=== PATIENT | female | born 1995 | race Caucasian/White ===

== ENCOUNTER 2023-03-27 14:58 | Emergency (ER) | payer OTHER, SELFPAY ==
[2023-03-27 15:14] VITALS: BP 132/86
[2023-03-27 16:16] VITALS: BP 133/86; BMI 27.4
[2023-03-27 16:17] VITALS: BP 133/86
[2023-03-27 16:32] LABS: % Basophils 0.5 % (0-2); % Eosinophils 1.5 % (0-6); % Immature Granulocytes 0.2 % (0-0.5); % Lymphocytes 35.6 % (20.5-51.1); % Monocytes 7.2 % (1.7-9.3); Absolute Eosinophils 0.1 10^3/uL (0-0.7); Absolute Lymphocytes 2.1 10^3/uL (1.2-3.4); Absolute Monocytes 0.4 10^3/uL (0.1-0.6); Absolute Neutrophils 3.2 10^3/uL (1.4-6.5); Hematocrit 36.3 % (37.0-47.0); Hemoglobin 13.5 g/dL (12.0-16.0); Mean Corp Hgb Conc. 37.2 g/dL (33.0-37.0); Mean Corpuscular Hgb 34.5 pg (27.0-31.0); Mean Corpuscular Volume 92.8 fL (81.0-99.0); Mean Platelet Volume 9.1 fL (7.4-10.4); Nucleated Red Blood Cells % 0 %; Platelet Count 265 10^3/uL (130-400); Red Blood Cell Count 3.91 10^6/uL (4.20-5.40); Red Cell Dist. Width 11.9 % (11.5-14.5); White Blood Cell Count 5.8 10^3/uL (4.8-10.8)
[2023-03-27 16:39] LABS: HCG, Serum Qualitative Screen Negative
[2023-03-27 16:48] LABS: D-Dimer < 0.27 ug/mlFEU (0.00-0.50)
[2023-03-27 16:53] LABS: Blood Urea Nitrogen 13 mg/dl (7-17); Carbon Dioxide 24 mmol/L (22-30); Estimated Creatinine Clearance 104 ml/min; Glucose 96 mg/dl (70-99); eGFR > 60.00
[2023-03-27 17:00] VITALS: BP 111/81
[2023-03-27 17:05] LABS: Chloride 102 mmol/L (98-107); Potassium 4.2 mmol/L (3.5-5.1); Sodium 136 mmol/L (135-145)
--- NOTE | 2023-03-27 17:36 | ED.GENMED ---
History of Present Illness
General
Chief Complaint: Numbness
Source: patient
Exam Limitations: none
Time Seen by Provider: 03/27/23 15:59
Travel History
Have you had any contact with someone who has COVID-19?: No
Do you have any symptoms of coronavirus? Fever > 100 degrees, chills, cough, shortness of breath, sore throat, loss of taste or smell, muscle aches, or headache?: No
History of Present Illness
History of Present Illness:
Patient with localized paresthesias to the right lateral leg yesterday. Very patchy local area. Today extended to the right arm. Feels like there is a cuff on her right arm. No weakness no other neurologic symptoms no swelling. She feels like
it is a circulation issue. Sent by her primary care for further evaluation. Patient did have a headache earlier in the week which she gets with her migraines.
Past History
Past History
ED Past Medical History: Asthma, Psychiatric (bipolar affective disorder) and Other (multiple concussions)
ED Past Surgical History: None
Social History
Tobacco: Non-smoker
Alcohol: Occasional
Drug: None
Personal: Single
Living: with family
Employment: Student
Family History
Family History: Other (coronary artery disease in father)
Review of Systems
Review of Systems
All Other Systems: Not applicable
Constitutional: Denies fever
Respiratory: Reports no symptoms
Cardiac: Reports no symptoms
Neurological: Denies weakness
Phy Exam
Physical Exam
Physical Exam:
GENERAL: Alert and oriented in no apparent distress
EYE: Orbits normal.
NECK: Supple, no carotid bruit
ENT: Pharynx without erythema
CARDIAC: Regular rate and rhythm without any obvious murmurs.
LUNGS: Clear breath sounds,normal
ABDOMEN: Soft, without focal tenderness or distention
NEUROLOGICAL: Alert and oriented , cranial nerves II through XII intact. Speech normal. [id number] normal. No drift. [id number] normal. Light touch and pinprick intact.
SKIN: Warm and dry, no rash or lesion, no discoloration, skin intact.
MUSCULOSKELETAL: No edema,no deformity.Good color
PSYCH: Normal and appropriate interaction.
Course
Orders/Labs/Results
Orders:
Orders
03/27/23 16:10
CT Head W/o Iv Contrast Urgent
Comment:
Reason For Exam: Recent headache. Right-sided paresthesias
Cardiac Monitoring- Treatment ONCE
IV Insert/Care/Rem.- Treatment PRN
Pulse Ox/cont/shift [RESP] Stat
Quantity: 1
03/27/23 16:11
Electrocardiogram (*1) Stat
Reason for Study: Other
Other Reason for Exam: neuro symptoms
EKG- Treatment ONCE
Test Result ONCE
03/27/23 16:19
Basic Metabolic Panel Urgent
Beta Hcg Serum Qualitative Screen [HCG, Serum Qualitative Screen] Urgent
Complete Blood Count/With Diff Urgent
D-Dimer Urgent
Abnormal Lab Results
03/27/23
16:19
RBC 3.91 L 10^6/uL
(4.20-5.40)
Hct 36.3 L %
(37.0-47.0)
MCH 34.5 H pg
(27.0-31.0)
MCHC 37.2 H g/dL
(33.0-37.0)
03/27/23 16:19
03/27/23 16:19
Vital Signs
Initial and Last Documented VS:
Initial Vital Signs
Temp Pulse Resp BP Pulse Ox
98.4 F 91 22 132/86 96
03/27/23 15:14 03/27/23 15:14 03/27/23 15:14 03/27/23 15:14 03/27/23 15:14
Last Documented Vital Signs
Temp Pulse Resp BP Pulse Ox
98.4 F 73 17 118/77 96
03/27/23 15:14 03/27/23 18:00 03/27/23 18:00 03/27/23 18:00 03/27/23 16:16
*Radiology
Radiology exam reviewed: radiology read reviewed (None acute sinusitis)
*EKG
Interpreted by ED Provider?: Yes
Interpretation: normal
Comparison EKG: no changes
Heart Rate: 78
Rate: normal
Rhythm: sinus
[place]: normal axis
Interval: normal interval
QRS Pattern: normal QRS
Ischemia: no ischemia
*Critical Care Note
Total Time (30-74mins, 75-104mins- exclusive of procedures): Not Applicable
Update Note
Update Note:
Patient's exam and workup unremarkable. No acute symptoms at this time. No risk factors for stroke. Sensation clinically intact. Stable for discharge to follow-up
ED Attending Note
-
Portions of this chart may have been created with voice recognition software.� Occasional wrong word or��sound alike� substitutions may have occurred due to the inherent limitations of voice recognition software.
Discharge Plan
Departure
Patient Disposition: Home (Routine Discharge)
Date of Disposition: 03/27/23
Time of Disposition: 18:22
Patient with high blood pressure during this ER visit?: No
Discharge Problem:
Paresthesias, Nonacute chronic sinusitis
Instructions: Paresthesia (DC)
Prescriptions:
No Action
albuterol sulfate 1 PUFF HFA aerosol inhaler
1 puff inhalation R Q4HPRN PRN (Reason: SOB)
norethindrone-e.estradiol-iron 1 EACH tablet
1 ea PO DAILY
carbamazepine 100 MG tablet extended release 12 hr
100 mg PO DAILY
fluoxetine 10 MG capsule
10 mg PO DAILY
Referrals:
Ayush Mosley MD [Family Provider] - Follow up in 2-3 days
Activity Restrictions/Additional Instructions:
Follow-up closely with your primary physician
Return with worsening paresthesias weakness unusual headache visual issues speech issues or any other concerning symptoms
Interventions
Interventions:
*Risk Screen - Suicide Last Done: 03/27/23 15:16
*General Assessment Last Done: 03/27/23 15:16
*Neglect/Abuse Screening Last Done: 03/27/23 15:16
ED- Fall Risk Assessment Last Done: 03/27/23 16:16
*ED COVID-19 Vaccine History Last Done: 03/27/23 16:16
ED- Neurological Assessment Last Done: 03/27/23 16:16
[2023-03-27 18:00] VITALS: BP 118/77
== END 2023-03-27 18:35 | disposition home or self-care (01) ==
LOC: EMR 14:58
PROVIDERS: EMERGENCY PHYSICIAN Emergency Medicine; FAMILY PHYSICIAN Family Medicine
DX: R20.2 Paresthesia of skin (principal); J32.9 Chronic sinusitis, unspecified; R20.0 Anesthesia of skin; R29.818 Other symptoms and signs involving the nervous system
CPT/HCPCS: 99285; 70450; 80048; 84703; 85025; 85379; 93005

== ENCOUNTER 2023-08-20 22:33 | Emergency (ER) | payer OTHER, SELFPAY ==
[2023-08-20 22:35] VITALS: BP 140/94
[2023-08-20 22:53] LABS: % Basophils 0.5 % (0-2); % Eosinophils 3.4 % (0-6); % Immature Granulocytes 0.2 % (0-0.5); % Lymphocytes 25.4 % (20.5-51.1); % Monocytes 7.7 % (1.7-9.3); % Neutrophils 62.8 % (42.2-75.2); Absolute Basophils 0.1 10^3/uL (0-0.2); Absolute Eosinophils 0.4 10^3/uL (0-0.7); Absolute Lymphocytes 2.8 10^3/uL (1.2-3.4); Absolute Monocytes 0.8 10^3/uL (0.1-0.6); Absolute Neutrophils 6.9 10^3/uL (1.4-6.5); Hematocrit 36.4 % (37.0-47.0); Hemoglobin 13.4 g/dL (12.0-16.0); Mean Corp Hgb Conc. 36.8 g/dL (33.0-37.0); Mean Corpuscular Hgb 34.3 pg (27.0-31.0); Mean Corpuscular Volume 93.1 fL (81.0-99.0); Nucleated Red Blood Cells % 0 %; Platelet Count 244 10^3/uL (130-400); Red Blood Cell Count 3.91 10^6/uL (4.20-5.40); Red Cell Dist. Width 11.9 % (11.5-14.5); White Blood Cell Count 10.9 10^3/uL (4.8-10.8)
[2023-08-20 23:03] LABS: HCG, Serum Qualitative Screen Negative
[2023-08-20 23:13] LABS: ALT (SGPT) 22 U/L (0-35); AST (SGOT) 24 U/L (14-36); Albumin 4.6 g/dl (3.5-5.0); Alkaline Phosphatase 58 U/L (38-126); Blood Urea Nitrogen 13 mg/dl (7-17); Calcium 9.5 mg/dl (8.4-10.2); Carbon Dioxide 28 mmol/L (22-30); Chloride 102 mmol/L (98-107); Glucose 98 mg/dl (70-99); Potassium 4.4 mmol/L (3.5-5.1); Sodium 137 mmol/L (135-145); Total Bilirubin 0.4 mg/dl (0.2-1.3); Total Protein 7.2 g/dl (6.3-8.2); eGFR > 60.00
--- NOTE | 2023-08-21 01:40 | ED.GENMED ---
History of Present Illness
General
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
Source: patient
Exam Limitations: none
Time Seen by Provider: 08/21/23 00:36
Nursing documentation reviewed up to this point in time: agreed with
History of Present Illness
History of Present Illness:
Ngozi presents with complaints of intermittent but near daily stabbing type pain right lower quadrant/right pelvic region that began 1 month ago. Pain has been near daily but worse over the past week and now seems to be generalized across her
lower abdomen/suprapubic region. No history of similar episodes of pain in the past.
With onset of pain early July she states she had 2 positive home test but then follow-up blood test July 22 was negative for .
She is maintained on control pills and reports daily compliance but has not had a menstrual period over the past 2 months which is unusual for her. No prior history of ovarian cysts, no history of STDs.
She had been following with Dr. Montes but since his departure has had trouble establishing with a new BAT LATHE OPERATOR. She has secured an appointment in October with a telephone collector from [facility].
She denies dysuria and urgency and or hematuria. She denies constipation nor diarrhea. No change in pain after emptying her bladder nor change in pain after bowel movement. She has had no nausea nor vomiting, no fever nor chills. No vaginal
discharge.
Past History
Past History
ED Past Medical History: Asthma, Psychiatric (bipolar affective disorder) and Other (multiple concussions)
ED Past Surgical History: None
Social History
Tobacco: Non-smoker
Alcohol: Occasional
Drug: None
Personal: Single
Living: with family
Employment: Employed
Family History
Family History: Other (coronary artery disease in father)
Phy Exam
Physical Exam
Physical Exam:
GENERAL: 27-year-old female appears her stated age, awake and alert, pleasant, appears in no acute distress.
EYE: anicteric
NECK: Supple, nontender, no meningismus, no significant adenopathy.
ENT: oral mucosa is moist. No rhinorrhea.
CARDIAC: Regular rate and rhythm. no murmur.
LUNGS: Clear breath sounds bilaterally, no acute respiratory distress, no wheezes/rales/rhonchi
ABDOMEN: Soft, nondistended, mild tenderness with deep palpation only to the right distal lower quadrant, minimal tenderness suprapubic. No r/g, no cvat. normoactive BS.
NEUROLOGICAL: Alert and oriented x3, no focal neuro deficits. Gait is carbajal and steady.
SKIN: Warm and dry, normal color, skin intact. No rash.
MUSCULOSKELETAL: No C/C/E. peripheral pulses are full and equal b/l. No palpable tenderness.
PSYCH: Normal and appropriate interaction.
Course
Orders/Labs/Results
Orders:
Orders
08/20/23 22:38
Test Result ONCE
08/20/23 22:46
CMP [Comprehensive Metabolic Panel] Urgent
Complete Blood Count/With Diff Urgent
HCG, Serum Qualitative Screen Urgent
08/21/23 00:39
US Pelvis Only (non-obstetric) Urgent
Comment:
Reason For Exam: right pelvi pain
08/21/23 01:36
Urinalysis Reflex To Culture Urgent
Date Specimen was Collected: 08/21/23
Time Specimen was Collected: 01:35
Urine Microscopic Reflex Cult Urgent
Urine Culture Urgent
[place] Source: U
Specimen Description:
Date Specimen was Collected: 08/21/23
Time Specimen was Collected: 01:35
Abnormal Lab Results
08/20/23 08/21/23
22:46 01:36
WBC 10.9 H 10^3/uL
(4.8-10.8)
RBC 3.91 L 10^6/uL
(4.20-5.40)
Hct 36.4 L %
(37.0-47.0)
MCH 34.3 H pg
(27.0-31.0)
Absolute Neuts (auto) 6.9 H 10^3/uL
(1.4-6.5)
Absolute Monos (auto) 0.8 H 10^3/uL
(0.1-0.6)
Leukocyte Esterase Rfl 1+ A
(Negative)
Urine WBC (Reflex) 11-15 A /HPF
(0-5)
Urine Bacteria (Reflex) Moderate A
(Negative)
08/20/23 22:46
08/20/23 22:46
Vital Signs
Initial and Last Documented VS:
Initial Vital Signs
Temp Pulse Resp BP Pulse Ox
97.5 F 86 20 140/94 98
08/20/23 22:35 08/20/23 22:35 08/20/23 22:35 08/20/23 22:35 08/20/23 22:35
Last Documented Vital Signs
Temp Pulse Resp BP Pulse Ox
97.5 F 86 20 140/94 98
08/20/23 22:35 08/20/23 22:35 08/20/23 22:35 08/20/23 22:35 08/20/23 22:35
MDM/Problems Addressed
Differential Diagnosis Includes:
Concern for ovarian cyst, ovarian torsion. Appendicitis is less likely as symptoms have been ongoing for a month. Other consideration is UTI, STD, constipation.
Reassuring that she has not had a fever and overall appears comfortable.
Labs thus far unremarkable. White blood cell count 10.9. Normal H&H. Chemistries are unremarkable. hCG is negative.
Will plan for pelvic ultrasound as well as urinalysis.
*Radiology
Radiology exam reviewed: radiology read reviewed (Ultrasound shows 2.9 cm right ovarian cyst. Left ovary with several follicles. Normal vascular flow bilaterally. No pelvic free fluid. Normal uterus. Endometrium measures 3 mm.)
*Pulse Oximetry
Patient hypoxic: no
*Critical Care Note
Total Time (30-74mins, 75-104mins- exclusive of procedures): Not Applicable
Update Note
Update Note:
08/21/2023 0251 AM
Ultrasound shows a 2.9 cm right ovarian cyst but good flow to both ovaries, no pelvic free fluid. Normal uterus as well as endometrial stripe.
Urinalysis shows moderate bacteria, WBCs but is a contaminated specimen with greater than 30 squamous epithelial cells. Patient has not had UTI symptoms.
Overall appears comfortable. Has not required pain medication.
Recommend NSAIDs for as needed discomfort and follow-up with USABILITY ENGINEER as already scheduled.
Return precautions discussed.
ED Attending Note
-
Portions of this chart may have been created with voice recognition software.� Occasional wrong word or��sound alike� substitutions may have occurred due to the inherent limitations of voice recognition software.
Discharge Plan
Departure
Patient Disposition: Home (Routine Discharge)
Date of Disposition: 08/21/23
Time of Disposition: 02:54
Patient with high blood pressure during this ER visit?: No
Condition: Good
Discharge Problem:
Cyst of right ovary
Instructions: Ovarian Cyst ED
Prescriptions:
New
ibuprofen 600 mg tablet
600 mg PO QID PRN (Reason: fever or pain) Qty: 20 0RF
No Action
albuterol sulfate 1 PUFF HFA aerosol inhaler
1 puff inhalation R Q4HPRN PRN (Reason: SOB)
norethindrone-e.estradiol-iron 1 EACH tablet
1 ea PO DAILY
carbamazepine 100 MG tablet extended release 12 hr
100 mg PO DAILY
fluoxetine 10 MG capsule
10 mg PO DAILY
Referrals:
Ayush Mosley MD [Family Provider] - Call in 1-3 days for appt
Activity Restrictions/Additional Instructions:
Follow-up with telephone collector as scheduled.
Interventions
Interventions:
*Risk Screen - Suicide Last Done: 08/20/23 22:35
*General Assessment Last Done: 08/21/23 01:45
*Neglect/Abuse Screening Last Done: 08/20/23 22:35
*ED COVID-19 Vaccine History Last Done: 08/21/23 01:45
ED-Female Genitourinary Assessment Last Done: 08/21/23 01:45
Discharge Date and Time
Print Language: BELARUSIAN
[2023-08-21 01:41] LABS: Urine Albumin Negative (Neg - Trace); Urine Bilirubin Negative (Negative); Urine Character Clear (Clear); Urine Color Yellow; Urine Glucose Negative (Negative); Urine Ketone Negative (Negative); Urine Leukocyte 1+ (Negative); Urine Nitrite Negative (Negative); Urine Occult Blood Negative (Negative); Urine Urobilinogen Negative (Neg - 1+)
[2023-08-21 02:11] LABS: Urine Squamous Cell >30 /LPF (Few)
[2023-08-21 02:12] LABS: Urine Bacteria Moderate (Negative); Urine Red Blood Cell 0-2 /HPF (0-2)
== END 2023-08-21 03:00 | disposition home or self-care (01) ==
LOC: EMR 22:33
PROVIDERS: Emergency Medicine; EMERGENCY PHYSICIAN Emergency Medicine; FAMILY PHYSICIAN Family Medicine
DX: N83.201 Unspecified ovarian cyst, right side (principal); J45.909 Unspecified asthma, uncomplicated; F31.9 Bipolar disorder, unspecified; Z82.49 Family history of ischemic heart disease and other diseases of the circulatory system
CPT/HCPCS: 99284; 76856; 80053; 81003; 81015; 84703; 85025; 87086

== ENCOUNTER 2023-10-01 21:53 | Emergency (ER) | payer OTHER, SELFPAY ==
[2023-10-01 22:03] VITALS: BP 118/84
--- NOTE | 2023-10-01 23:09 | ED.GENMED ---
History of Present Illness
General
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
Time Seen by Provider: 10/01/23 22:34
History of Present Illness
History of Present Illness:
27-year-old female with prior history of ovarian cyst presenting to the emergency department for left-sided abdominal pain. Patient reports about a month ago she was having right lower quadrant pain, was diagnosed with an ovarian cyst. She was
told to follow-up with gynecology. She did follow-up and was told to have outpatient ultrasound in a week. However in the past 2 days started to have left lower quadrant abdominal pain that is worsening. She reports the pain feels similar to the
pain that she had on the right side. She notes that she still having pain on the right side, however left is now greater than right. Denies any abnormal vaginal discharge. Denies any urinary symptoms such as dysuria. Denies fever. Denies
vomiting. Denies changes in stool. Denies any history of abdominal surgeries. Denies additional acute medical complaints.
Past History
Past History
ED Past Medical History: Asthma, Psychiatric (bipolar affective disorder) and Other (multiple concussions)
ED Past Surgical History: None
Social History
Tobacco: Non-smoker
Alcohol: Occasional
Drug: None
Personal: Single
Living: with family
Employment: Employed
Family History
Family History: Other (coronary artery disease in father)
Phy Exam
Physical Exam
Physical Exam:
General: Well-appearing, no clinical signs of dehydration, nontoxic and in no acute distress
HEENT: protecting airway
Neck: appears supple
CV: Normal heart rate, regular rhythm, no evidence of cyanosis
Resp: No accessory muscle use, no increased work of breathing, lungs clear to auscultation bilaterally
Abd: Soft and non-distended, no tenderness to palpation
Extremities: No deformities, no swelling, no erythema
Neuro: alert, no focal neurologic deficit
: deferred
Rectal: deferred
Psych: Normal affect
Skin: Intact
Course
Orders/Labs/Results
Orders:
Orders
10/01/23 23:07
US Pelvis Only (non-obstetric) Urgent
Comment:
Reason For Exam: L-lower pain, hx cysts
10/01/23 23:08
Test Result ONCE
10/01/23 23:14
, Urine Qualitative Screen [HCG, Urine Qualitative Screen] Urgent
Date Specimen was Collected: 10/01/23
Time Specimen was Collected: 23:12
Urinalysis Reflex To Culture Urgent
Date Specimen was Collected: 10/01/23
Time Specimen was Collected: 23:12
Urine Microscopic Reflex Cult Urgent
Abnormal Lab Results
10/01/23
23:14
Leukocyte Esterase Rfl Trace A
(Negative)
Urine Bacteria (Reflex) Few A
(Negative)
Vital Signs
Initial and Last Documented VS:
Initial Vital Signs
Temp Pulse Resp BP Pulse Ox
99.9 F 78 20 118/84 100
10/01/23 22:03 10/01/23 22:03 10/01/23 22:03 10/01/23 22:03 10/01/23 22:03
Last Documented Vital Signs
Temp Pulse Resp BP Pulse Ox
98.9 F 66 16 124/64 99
10/01/23 23:45 10/02/23 00:00 10/02/23 00:00 10/02/23 00:00 10/02/23 00:00
MDM/Problems Addressed
MDM/Problems Addressed:
27-year-old female with history of ovarian cyst presenting to the emergency department for left lower quadrant abdominal pain. Patient concern for ovarian cyst. Vital signs normal.
On exam patient is well-appearing, nontoxic. Overall benign examination. Pain is not reproducible. She reports that her pain feels similar to prior episodes of ovarian cyst. Lower suspicion for severe intra-abdominal process or infection,
nontoxic, again no focal reproducible tenderness. Lower suspicion for ovarian torsion without reproducible tenderness, comfortable in appearance. Will obtain urinalysis to ensure no for rule out ectopic. Will also send for ultrasound to
evaluate for cysts.
01:00 - Ultrasound without acute findings. Appropriate vascularity to the ovaries, no sign of torsion. No free pelvic fluid. Urine without or infection. There is a small minimally complex cyst versus corpus luteum in the left ovary
measuring 2.7 cm, possibly contributing to patient's pain. At this time patient remains hemodynamically stable. Feel stable for discharge with close interval follow-up with gynecology. Advised Tylenol or Motrin as needed for pain. Return
precautions discussed and patient verbalized understanding.
*Critical Care Note
Total Time (30-74mins, 75-104mins- exclusive of procedures): Not Applicable
ED Attending Note
-
Portions of this chart may have been created with voice recognition software.� Occasional wrong word or��sound alike� substitutions may have occurred due to the inherent limitations of voice recognition software.
Discharge Plan
Departure
Prescriptions:
No Action
albuterol sulfate 1 PUFF HFA aerosol inhaler
1 puff inhalation R Q4HPRN PRN (Reason: SOB)
norethindrone-e.estradiol-iron 1 EACH tablet
1 ea PO DAILY
carbamazepine 100 MG tablet extended release 12 hr
100 mg PO DAILY
fluoxetine 10 MG capsule
10 mg PO DAILY
ibuprofen 600 mg tablet
600 mg PO QID PRN (Reason: fever or pain) Qty: 20 0RF
Referrals:
Ayush Mosley MD [Family Provider] -
Interventions
Interventions:
*Risk Screen - Suicide Last Done: 10/01/23 22:03
*General Assessment Last Done: 10/01/23 22:03
*Neglect/Abuse Screening Last Done: 10/01/23 22:03
ED- Fall Risk Assessment Last Done: 10/01/23 22:03
*ED COVID-19 Vaccine History Last Done: 10/01/23 22:03
*Nursing Disposition Last Done: 10/02/23 01:03
ED-Female Genitourinary Assessment Last Done: 10/01/23 22:09
Discharge Date and Time
Print Language: LITHUANIAN
[2023-10-01 23:45] VITALS: BP 112/68
[2023-10-01 23:53] LABS: Urine Albumin Negative (Neg - Trace); Urine Bilirubin Negative (Negative); Urine Character Clear (Clear); Urine Color Yellow; Urine Glucose Negative (Negative); Urine Ketone Negative (Negative); Urine Leukocyte Trace (Negative); Urine Nitrite Negative (Negative); Urine Occult Blood Negative (Negative); Urine Urobilinogen Negative (Neg - 1+); Urine pH 6.5 (5.0-9.0)
[2023-10-01 23:54] LABS: HCG, Urine Qualitative Screen Negative
[2023-10-02] VITALS: BP 124/64
[2023-10-02 00:08] LABS: Urine Bacteria Few (Negative); Urine Red Blood Cell 0-2 /HPF (0-2)
== END 2023-10-02 01:20 | disposition home or self-care (01) ==
LOC: EMR 21:53
PROVIDERS: EMERGENCY PHYSICIAN Student in an Organized Health Care Education/Training Program; FAMILY PHYSICIAN Family Medicine
DX: R10.32 Left lower quadrant pain (principal); N83.201 Unspecified ovarian cyst, right side; J45.909 Unspecified asthma, uncomplicated; F31.9 Bipolar disorder, unspecified; Z87.820 Personal history of traumatic brain injury; Z88.1 Allergy status to other antibiotic agents; Z88.2 Allergy status to sulfonamides
CPT/HCPCS: 99284; 76856; 81003; 81015; 81025

== ENCOUNTER 2024-03-03 10:58 | Emergency (ER) | payer OTHER, SELFPAY ==
[2024-03-03 11:08] VITALS: BP 126/89
[2024-03-03 11:28] LABS: % Basophils 0.7 % (0-2); % Lymphocytes 11.7 % (20.5-51.1); % Monocytes 6.3 % (1.7-9.3); % Neutrophils 81.3 % (42.2-75.2); Absolute Lymphocytes 0.5 10^3/uL (1.2-3.4); Absolute Monocytes 0.3 10^3/uL (0.1-0.6); Absolute Neutrophils 3.3 10^3/uL (1.4-6.5); Hematocrit 35.7 % (37.0-47.0); Hemoglobin 12.9 g/dL (12.0-16.0); Mean Corp Hgb Conc. 36.1 g/dL (33.0-37.0); Mean Corpuscular Hgb 34.4 pg (27.0-31.0); Mean Corpuscular Volume 95.2 fL (81.0-99.0); Mean Platelet Volume 9.3 fL (7.4-10.4); Nucleated Red Blood Cells % 0 %; Platelet Count 182 10^3/uL (130-400); Red Blood Cell Count 3.75 10^6/uL (4.20-5.40); Red Cell Dist. Width 11.8 % (11.5-14.5); White Blood Cell Count 4.1 10^3/uL (4.8-10.8)
[2024-03-03 11:43] LABS: ALT (SGPT) 27 U/L (0-35); AST (SGOT) 26 U/L (14-36); Albumin 4.1 g/dl (3.5-5.0); Alkaline Phosphatase 44 U/L (38-126); Blood Urea Nitrogen 6 mg/dl (7-17); Calcium 8.6 mg/dl (8.4-10.2); Carbon Dioxide 26 mmol/L (22-30); Chloride 100 mmol/L (98-107); Glucose 150 mg/dl (70-99); HCG, Serum Qualitative Screen Negative; Potassium 3.6 mmol/L (3.5-5.1); Sodium 135 mmol/L (135-145); Total Bilirubin 0.6 mg/dl (0.2-1.3); Total Protein 6.6 g/dl (6.3-8.2); eGFR > 60.00
--- NOTE | 2024-03-03 12:09 | ED.GENMED ---
History of Present Illness
General
Chief Complaint: Cold/Flu/URI Symptoms
Source: patient
Time Seen by Provider: 03/03/24 11:57
History of Present Illness
History of Present Illness:
28-year-old female presenting to the ER for evaluation of upper respiratory like symptoms that started on Friday, tested positive for the flu today, noticed increased respiratory difficulty so she contacted her primary care provider who recommended
she come to the ER for further evaluation. Patient last used her albuterol nebulizer around 6 AM with some relief. Endorses a continued headache. No other concerns present.
Past History
Past History
ED Past Medical History: Asthma and Other (multiple concussions)
ED Past Surgical History: None
Social History
Tobacco: Non-smoker
Alcohol: Occasional
Drug: None
Personal: Single
Living: with family
Employment: Employed
Family History
Family History: Other (coronary artery disease in father)
Review of Systems
Review of Systems
All Other Systems: ROS reviewed and negative except as documented in HPI and ROS
Phy Exam
Physical Exam
Physical Exam:
GENERAL: Alert , in no apparent distress
EYE: conjunctiva clear
NECK: Supple, no significant adenopathy.
ENT: o/p clr, mmm.
CARDIAC: Mildly tachycardic rate and rhythm, no murmur
LUNGS: Clear breath sounds bilaterally, no acute respiratory distress, no wheezes/rales/rhonchi, speaking full sentences, no accessory muscle use
NEUROLOGICAL: Alert and oriented
SKIN: Warm and dry, skin intact.
MUSCULOSKELETAL: well perfused.
PSYCH: Normal and appropriate interaction.
Scores
Heart Failure Risk
Heart Failure Risk Score: Not Applicable
Heart Score for Chest Pain Patients
STEMI patient?: Not applicable
Withdrawal Assessment of Alcohol
Withdrawal Assessment Completed?: Not applicable
Course
Orders/Labs/Results
Orders:
Orders
03/03/24 11:10
CXR2 [CR Chest - 2 Views ] Urgent
Comment:
Reason For Exam: uri with sob hx asthma
03/03/24 11:11
Test Result ONCE
03/03/24 11:15
Complete Blood Count/With Diff Urgent
Comprehensive Metabolic Panel Urgent
HCG, Serum Qualitative Screen Urgent
03/03/24 12:08
Ibuprofen [Motrin] 600 mg PO NOW STA
Prednisone [Deltasone] 50 mg PO NOW STA
Abnormal Lab Results
03/03/24
11:15
WBC 4.1 L 10^3/uL
(4.8-10.8)
RBC 3.75 L 10^6/uL
(4.20-5.40)
Hct 35.7 L %
(37.0-47.0)
MCH 34.4 H pg
(27.0-31.0)
Absolute Lymphs (auto) 0.5 L 10^3/uL
(1.2-3.4)
Neutrophils % 81.3 H %
(42.2-75.2)
Lymphocytes % 11.7 L %
(20.5-51.1)
BUN 6 L mg/dl
(7-17)
Glucose 150 H mg/dl
(70-99)
03/03/24 11:15
03/03/24 11:15
Vital Signs
Initial and Last Documented VS:
Initial Vital Signs
Temp Pulse Resp BP Pulse Ox
99.6 F 120 18 126/89 98
03/03/24 11:08 03/03/24 11:08 03/03/24 11:08 03/03/24 11:08 03/03/24 11:08
Last Documented Vital Signs
Temp Pulse Resp BP Pulse Ox
99.6 F 110 20 126/89 98
03/03/24 11:08 03/03/24 13:00 03/03/24 13:00 03/03/24 11:08 03/03/24 13:00
MDM/Problems Addressed
Differential Diagnosis Includes:
Flu, asthma exacerbation, pneumonia
MDM/Problems Addressed:
28-year-old female presenting to the ER for evaluation after having a known positive test for the flu done earlier today, symptoms started 2 days ago noting continued respiratory difficulty and headache. Patient used nebulizer machine around 6 AM.
Lungs here are clear without any wheezing or respiratory distress. Patient does have some mild tachycardia which could be related to her infection as opposed to respiratory driven. Will treat with dose of prednisone here for her asthma as well as
Motrin for her headache. Labs were ordered in triage and outside of mild leukopenia which is likely secondary to the flu are unremarkable. Chest x-ray also without any signs of pneumonia.
Chronic conditions affecting care: Asthma
*Radiology
Radiology exam reviewed: radiology read reviewed
*Pulse Oximetry
Patient hypoxic: no
*Critical Care Note
Total Time (30-74mins, 75-104mins- exclusive of procedures): Not Applicable
Patient Management
Escalation/DeEscalation of care consider admission/obs:
Patient without any continued evidence of respiratory difficulty. Heart rate improved on vital sign recheck. Prescriptions for albuterol, prednisone and Tamiflu were sent to pharmacy. Aware of return precautions to the ER.
ED Attending Note
-
Portions of this chart may have been created with voice recognition software.� Occasional wrong word or��sound alike� substitutions may have occurred due to the inherent limitations of voice recognition software.
Discharge Plan
Departure
Patient Disposition: Home (Routine Discharge)
Date of Disposition: 03/03/24
Time of Disposition: 12:50
Patient with high blood pressure during this ER visit?: No
Discharge Problem:
Influenza
Instructions: Flu in adults - Discharge instructions
Prescriptions:
New
oseltamivir [Tamiflu] 75 mg capsule
75 mg PO BID 5 Days Qty: 10 0RF
albuterol sulfate 2.5 mg /3 mL (0.083 %) solution for nebulization
2.5 mg inhalation QID PRN (Reason: shortness of breath or wheezing) Qty: 180 0RF
prednisone 50 mg tablet
50 mg PO DAILY Qty: 4 0RF
No Action
albuterol sulfate 1 PUFF HFA aerosol inhaler
1 puff inhalation R Q4HPRN PRN (Reason: SOB)
norethindrone-e.estradiol-iron 1 EACH tablet
1 ea PO DAILY
carbamazepine 100 MG tablet extended release 12 hr
100 mg PO DAILY
fluoxetine 10 MG capsule
10 mg PO DAILY
ibuprofen 600 mg tablet
600 mg PO QID PRN (Reason: fever or pain) Qty: 20 0RF
Referrals:
Ayush Mosley MD [Family Provider] -
Stand Alone Forms: Return to Work
Interventions
Interventions:
*Risk Screen - Suicide Last Done: 03/03/24 11:08
*General Assessment Last Done: 03/03/24 12:14
*Neglect/Abuse Screening Last Done: 03/03/24 11:08
ED- Fall Risk Assessment Last Done: 03/03/24 13:02
*ED COVID-19 Vaccine History Last Done: 03/03/24 12:14
*Nursing Disposition Last Done: 03/03/24 13:02
ED- Pulmonary Assessment Last Done: 03/03/24 12:23
Discharge Date and Time
Discharge Date/Time: 03/03/24 13:05
Print Language: TANZANIAN
[2024-03-03] MEDS: MOTRIN 600 MG PO (12:19)
[2024-03-03] MEDS: DELTASONE 50 MG PO (12:19)
== END 2024-03-03 13:05 | disposition home or self-care (01) ==
LOC: EMR 10:58
PROVIDERS: Emergency Medicine; EMERGENCY PHYSICIAN Emergency Medicine; FAMILY PHYSICIAN Family Medicine
DX: J11.1 Influenza due to unidentified influenza virus with other respiratory manifestations (principal); J45.909 Unspecified asthma, uncomplicated; Z82.49 Family history of ischemic heart disease and other diseases of the circulatory system
CPT/HCPCS: 99283; 71046; 80053; 84703; 85025

== ENCOUNTER → 2024-03-24 09:38 | Outpatient (REF) | payer OTHER, SELFPAY | LOC: RAD 09:38 | PROVIDERS: ATTENDING PHYSICIAN Family Medicine | DX: R05.1 Acute cough (principal) | CPT/HCPCS: 71046 ==

== ENCOUNTER → 2024-04-15 14:52 | Outpatient (REF) | payer OTHER, SELFPAY | LOC: MRI 3T 14:52 | PROVIDERS: ATTENDING PHYSICIAN Nurse Practitioner Adult Health; FAMILY PHYSICIAN Family Medicine | DX: G43.109 Migraine with aura, not intractable, without status migrainosus (principal); R40.4 Transient alteration of awareness; R93.0 Abnormal findings on diagnostic imaging of skull and head, not elsewhere classified | CPT/HCPCS: 70553; A9575 ==

== ENCOUNTER → 2024-05-12 12:30 | Outpatient (REF) | payer OTHER, SELFPAY | LOC: RAD 12:30 | PROVIDERS: ATTENDING PHYSICIAN Physician Assistant Medical | DX: M25.561 Pain in right knee (principal) | CPT/HCPCS: 73564 ==

== ENCOUNTER 2024-09-21 21:59 | Emergency (ER) | payer OTHER, SELFPAY ==
[2024-09-21 22:00] VITALS: BP 134/82
[2024-09-21 23:08] VITALS: BMI 26.7
--- NOTE | 2024-09-21 23:35 | ED.GENMED ---
History of Present Illness
General
Chief Complaint: Head Injury
Source: patient
Exam Limitations: none
Time Seen by Provider: 09/21/24 23:34
Nursing documentation reviewed up to this point in time: agreed with
History of Present Illness
History of Present Illness:
Note:
CHIEF COMPLAINT(S)
Head injury with a headache and nausea.
HISTORY OF PRESENT ILLNESS
The patient is a 28-year-old female with a pmh of migraines, concussions, who presents after striking her head approximately today at 12:30 PM while cleaning. She reports she hit her head on a television mount, which was extended from the wall,
causing immediate dizziness. She did not lose consciousness but experienced nausea and a headache following the incident. The patient expressed concern about a flattened area on her head where she struck it. She reports no vomiting, and her
dizziness was only transient. Additionally, she notes neck pain radiating downwards since the time of injury, without any numbness or tingling in the arms. She denies any other injuries.
PHYSICAL EXAM
- Nursing notes reviewed and vital signs reviewed.
General: Patient is well appearing and in no acute distress; non-toxic
Skin: Warm and dry, no palpable hematoma of the scalp
Head: Normocephalic, atraumatic
Eyes: Sclera non-icteric. EOMs intact.
Cardiac: Regular rate
Pulm: Normal respiratory effort
Musculoskeletal: Normal gait.
Neuro: CN II-XII intact, no focal neurologic deficits. Normal finger to nose, heel to mcdonnell
Psychiatric: Appropriate mood and affect.
PLAN
- CT non-contrast scan of the head
DIFFERENTIAL DIAGNOSIS
The Differential Diagnosis includes, in no particular order and is not limited to:
1. Concussion
2. Scalp Hematoma
3. Traumatic Brain Injury
4. Skull Fracture
5. Cervical Spine Injury
6. Migraine Triggered by Head Trauma
7. Post-Traumatic Stress Disorder
8. Cerebral Contusion
9. Subdural Hematoma
10. Epidural Hematoma
Disposition:
SUMMARY OF ENCOUNTER
The patient is a 28-year-old female who presented to the emergency department with a headache following blunt head trauma. She hit her head on a television mount while cleaning and experienced immediate dizziness, nausea, and headache. She has a
history of migraines and prior concussions and actively follows with neurology. The physical examination showed no changes to the scalp, but no loss of consciousness or neurological deficits.
DISPOSITION
Discharge.
ASSESSMENT
Suspected concussion from blunt head trauma
INDEPENDENT REVIEW OF LABS AND INTERPRETATION OF TESTS
My independent interpretation of the CT scan of the head shows no signs of acute intracranial abnormality.
PATIENT EDUCATION AND COUNSELING
The patient was educated to monitor her symptoms and advised to follow up with her neurologist as an outpatient.
FOLLOW-UP INSTRUCTIONS
The patient was advised to follow up with her neurologist.
MEDICAL DECISION MAKING
-Complexity of Data Reviewed: Chronic conditions affecting care include migraines and past concussions. Differential Diagnosis includes concussion, scalp hematoma, traumatic brain injury, skull fracture, cervical spine injury, migraine triggered by
head trauma, post-traumatic stress disorder, cerebral contusion, subdural hematoma, and epidural hematoma.
-Data:
Category 1
My independent interpretation of CT scan indicates no acute intracranial abnormalities.
-Risk:
Consideration of Admission/Observation: Escalation of care including admission/observation was considered given the complexity and risk of the patients presenting complaint, exam findings, and/or their underlying comorbidities. However, ultimately I
feel the patient is safe for outpatient management with close follow up. Reasoning: Work-up reassuring, does not reveal any acute life/organ threatening processes, patients symptoms well controlled upon reevaluation, reexamination is reassuring,
vitals are stable, patient agreeable with discharge, reliable for follow-up.
DIAGNOSIS
Concussion without loss of consciousness (S06.0X0A).
Past History
Past History
ED Past Medical History: Asthma and Other (multiple concussions)
ED Past Surgical History: None
Social History
Tobacco: Non-smoker
Alcohol: Occasional
Drug: None
Personal: Single
Living: with family
Employment: Employed
Family History
Family History: Other (coronary artery disease in father)
Phy Exam
Physical Exam
Physical Exam:
see hpi
Course
Orders/Labs/Results
Orders:
Orders
09/21/24 23:50
CT Head W/o Iv Contrast Urgent
Comment:
Reason For Exam: dizziness, headache after trauma
09/22/24 01:13
Ibuprofen [Motrin] 600 mg .ROUTE .STK-MED ONE
09/22/24 01:15
Ibuprofen [Motrin] 600 mg PO NOW STA
Vital Signs
Initial and Last Documented VS:
Initial Vital Signs
Temp Pulse Resp BP Pulse Ox
98.6 F 82 16 134/82 95
09/21/24 22:00 09/21/24 22:00 09/21/24 22:00 09/21/24 22:00 09/21/24 22:00
Last Documented Vital Signs
Temp Pulse Resp BP Pulse Ox
98.6 F 75 20 109/63 97
09/21/24 22:00 09/22/24 01:16 09/22/24 01:16 09/22/24 01:16 09/22/24 01:16
*Pulse Oximetry
SaO2: 98
Oxygen Mode of Delivery: Room air
Patient hypoxic: no
*Critical Care Note
Total Time (30-74mins, 75-104mins- exclusive of procedures): Not Applicable
ED Attending Note
-
Portions of this chart may have been created with voice recognition software.� Occasional wrong word or��sound alike� substitutions may have occurred due to the inherent limitations of voice recognition software.
Discharge Plan
Departure
Patient Disposition: Home (Routine Discharge)
Date of Disposition: 09/22/24
Time of Disposition: 01:27
Patient with high blood pressure during this ER visit?: No
Condition: Good
Discharge Problem:
Head injury
Instructions: Head Injury in Adults (DC), BLOOD PRESSURE
Prescriptions:
No Action
albuterol sulfate 1 PUFF HFA aerosol inhaler
1 puff inhalation R Q4HPRN PRN (Reason: SOB)
norethindrone-e.estradiol-iron 1 EACH tablet
1 ea PO DAILY
ibuprofen 600 mg tablet
600 mg PO QID PRN (Reason: fever or pain) Qty: 20 0RF
albuterol sulfate 2.5 mg /3 mL (0.083 %) solution for nebulization
2.5 mg inhalation QID PRN (Reason: shortness of breath or wheezing) Qty: 180 0RF
Referrals:
Ayush Mosley MD [Family Provider, Family Practice]
Activity Restrictions/Additional Instructions:
Please follow-up with your neurologist.
PLEASE RETURN TO THE ER SHOULD YOU DEVELOP INTRACTABLE NAUSEA OR VOMITING, WEAKNESS ON ONE SIDE OF THE BODY VERSUS THE OTHER, LOSS OF CONSCIOUSNESS, CHEST PAIN, SHORTNESS OF BREATH, OR ANY OTHER SIGNS OR SYMPTOMS WORRISOME TO YOU.
Interventions
Interventions:
*Risk Screen - Suicide Last Done: 09/21/24 22:01
*General Assessment Last Done: 09/21/24 23:09
*Neglect/Abuse Screening Last Done: 09/21/24 22:01
*ED- Fall Risk Assessment Last Done: 09/21/24 23:09
*ED COVID-19 Vaccine History Last Done: 09/21/24 23:09
*Nursing Disposition Last Done: 09/22/24 01:43
ED- Neurological Assessment Last Done: 09/21/24 23:09
ED-Skin Assessment Last Done: 09/21/24 23:09
Discharge Date and Time
Discharge Date/Time: 09/22/24 01:44
Print Language: URUGUAYAN
[2024-09-22] MEDS: MOTRIN 600 MG PO (01:15)
[2024-09-22 01:16] VITALS: BP 109/63
== END 2024-09-22 01:44 | disposition home or self-care (01) ==
LOC: EMR 21:59
PROVIDERS: EMERGENCY PHYSICIAN Student in an Organized Health Care Education/Training Program; FAMILY PHYSICIAN Family Medicine
DX: S06.0X0A Concussion without loss of consciousness, initial encounter (principal); R11.0 Nausea; M54.2 Cervicalgia; W22.09XA Striking against other stationary object, initial encounter; G43.909 Migraine, unspecified, not intractable, without status migrainosus; J45.909 Unspecified asthma, uncomplicated; Z87.820 Personal history of traumatic brain injury; Z88.1 Allergy status to other antibiotic agents; Z88.2 Allergy status to sulfonamides
CPT/HCPCS: 99284; 70450

== ENCOUNTER → 2024-10-28 09:17 | Outpatient (REF) | payer OTHER, SELFPAY | LOC: HWRAD 09:17 | PROVIDERS: ATTENDING PHYSICIAN Family Medicine | DX: R10.11 Right upper quadrant pain (principal) | CPT/HCPCS: 76700 ==

== ENCOUNTER 2024-12-05 19:05 | Emergency (ER) | payer OTHER, SELFPAY ==
[2024-12-05 19:06] VITALS: BP 130/88
[2024-12-05 19:44] VITALS: BMI 28.0
--- NOTE | 2024-12-05 20:32 | ED.GENMED ---
History of Present Illness
General
Chief Complaint: Headache
Source: patient
Exam Limitations: none
Time Seen by Provider: 12/05/24 20:18
Nursing documentation reviewed up to this point in time: agreed with
History of Present Illness
History of Present Illness:
Note:
CHIEF COMPLAINT(S)
Severe headache and chest discomfort.
HISTORY OF PRESENT ILLNESS
The patient is a 28-year-old female presenting with a severe headache that began earlier today and worsened significantly around 5:30 to 6:00 PM. Initially, the headache was moderate but intensified when she tried to sit up, prompting her to check
her blood pressure, which did not reveal any abnormalities. The headache was accompanied by a heavy sensation in the chest when sitting up. The patient describes the headache as diffuse, stating, 'it kind of hurt everywhere,' and rated the pain as 4
out of 10 when it worsened with movement. The patient experienced some photophobia, noting that light was 'pretty bright,' though it did not exacerbate the headache. Nausea was also present earlier, but she is not currently nauseated. She has a
history of asthma for which she takes medication, but she denies frequent visits to the emergency department for headaches and is not using medication for headaches regularly.
REVIEW OF SYSTEMS
- Head: Reports severe headache that worsens upon sitting up.
- Chest: Describes a heavy sensation in the chest associated with headache exacerbation.
- Neurological: Reports photophobia but no exacerbation of headache.
PHYSICAL EXAM
General: Alert, no acute distress.
Skin: Warm, dry.
Head: Normocephalic, atraumatic.
Neck: Supple, trachea midline.
Eyes, Ears, Nose, Mouth, and Throat: Oral mucosa moist. Photophobia present but no worsening of headache.
Cardiovascular: Normal peripheral perfusion, No edema.
Respiratory: Respirations are non-labored.
Gastrointestinal: Abdomen nondistended.
Back: Normal range of motion, Normal alignment.
Musculoskeletal: Normal range of motion, normal strength.
Neurological: Alert and oriented to person, place, time, and situation, No focal neurological deficit observed.
Psychiatric: Cooperative, appropriate mood & affect.
PROBLEM LIST
Acute:
- Severe headache
- Heavy sensation in the chest
- Photophobia
- Nausea
Chronic:
- Asthma
PLAN
The patient will be evaluated for severe headache and associated symptoms. Consideration will be given to potential treatments and interventions to alleviate symptoms, with attention to the patients asthma history in managing her care.
DIFFERENTIAL DIAGNOSIS
The Differential Diagnosis includes, in no particular order and is not limited to:
1. Migraine headache
2. Tension-type headache
3. Hypertensive headache
4. Non-cardiac chest pain
5. Anxiety or stress-related headache
6. Cervicogenic headache
7. Sinus headache
8. Cluster headache
9. Medication-overuse headache
10. Benign intracranial hypertension
CARE-UPDATE
12/05/24 - 21:21
The patient experienced improvement in migraine symptoms after administration of Aviatoridol, Reglan, and Benadryl. All lab results and exam findings were normal. The patients condition is stable, and they have been instructed to follow up with
primary care and were provided with return precautions. The patient is ready for discharge.
EKG
My independent EKG interpretation is:
- Time of EKG: Not specified
- Rhythm: Normal sinus rhythm
- Heart Rate: 82 beats per minute
- NJ Interval: Normal
- QRS Duration: Normal
- QT Interval: Normal
- [place]: Not specified
- Abnormalities Observed: None; no signs of ischemia noted
Disposition:
SUMMARY OF ENCOUNTER
The patient, a 28-year-old female, presented to the emergency department with a chief complaint of severe headache and chest discomfort. The headache was described as diffuse and worsened upon sitting up, accompanied by photophobia and a heavy
sensation in the chest. Initial management in the emergency department included administration of sumatriptan, metoclopramide, and diphenhydramine which led to improvement in symptoms. Evaluation indicated no signs of intracranial hemorrhage or
acute coronary syndrome. The patients asthma history was considered in treatment, ensuring no medications that could exacerbate her condition were used.
DISPOSITION
Discharge.
ASSESSMENT
Suspect migraine headache with associated chest discomfort; patients condition improved significantly after treatment.
EMERGENCY TREATMENTS ADMINISTERED
Sumatriptan, metoclopramide, and diphenhydramine were administered in the emergency department.
PLAN
The patient is advised to follow up with primary care for ongoing management of migraines and was provided with return precautions should symptoms persist or worsen.
INDEPENDENT REVIEW OF LABS AND INTERPRETATION OF TESTS
My independent EKG interpretation is normal sinus rhythm, heart rate 82 beats per minute, normal NJ, QRS, and QT intervals, with no abnormalities observed and no signs of ischemia.
PATIENT EDUCATION AND COUNSELING
The patient was educated on recognizing symptoms of a migraine and the importance of follow-up care. Instructions were given on when to seek medical attention, particularly if symptoms escalate or do not resolve with treatment. Provided return
precautions for any worsening of symptoms.
FOLLOW-UP INSTRUCTIONS
The patient should follow up with their primary care provider for further evaluation and management of migraines, and they were instructed to return to the emergency department if symptoms worsen or new symptoms develop.
MEDICATION RECONCILIATION
Medications administered: sumatriptan, metoclopramide, diphenhydramine.
MEDICAL DECISION MAKING
- Number and Complexity of Problems Addressed: Chronic conditions affecting care include a history of asthma. Differential diagnosis includes migraine headache, tension-type headache, hypertensive headache, non-cardiac chest pain, anxiety or
stress-related headache, cervicogenic headache, sinus headache, cluster headache, medication-overuse headache, and benign intracranial hypertension.
- Data:
Category 1
My independent interpretation of EKG shows normal sinus rhythm with no signs of ischemia.
- Risk:
Consideration of Admission/Observation: Escalation of care including admission/observation was considered given the complexity and risk of the patients presenting complaint, exam findings, and/or their underlying comorbidities. However, ultimately I
feel the patient is safe for outpatient management with close follow-up. Reasoning: Work-up reassuring, does not reveal any acute life/organ threatening processes, patients symptoms well controlled upon reevaluation, reexamination is reassuring,
vitals are stable, patient agreeable with discharge, reliable for follow-up.
DIAGNOSIS
- Migraine headache (G43.909)
- Chest discomfort related to migraine (R07.9)
Past History
Past History
ED Past Medical History: Asthma and Other (multiple concussions)
ED Past Surgical History: None
Social History
Tobacco: Non-smoker
Alcohol: Occasional
Drug: None
Personal: Single
Living: with family
Employment: Employed
Family History
Family History: Other (coronary artery disease in father)
Phy Exam
Physical Exam
Physical Exam:
.
Course
Orders/Labs/Results
Orders:
Orders
12/05/24 19:10
EKG [Electrocardiogram (*1)] Urgent
Reason for Study: Tachycardia
EKG- Treatment ONCE
12/05/24 20:29
Cardiac Monitoring- Treatment ONCE
IV Insert/Care/Rem.- Treatment PRN
Diphenhydramine [Benadryl] 25 mg IV NOW STA
Ketorolac [Toradol] 15 mg IV NOW STA
Metoclopramide [Reglan] 10 mg IV NOW STA
Pulse Ox/cont/shift [RESP] Stat
Quantity: 1
12/05/24 20:35
Complete Blood Count/With Diff Urgent
Comprehensive Metabolic Panel Urgent
Abnormal Lab Results
12/05/24
20:35
[facility] 33.6 H pg
(27.0-31.0)
12/05/24 20:35
12/05/24 20:35
Vital Signs
Initial and Last Documented VS:
Initial Vital Signs
Temp Pulse Resp BP Pulse Ox
98.3 F 88 16 130/88 97
12/05/24 19:06 12/05/24 19:06 12/05/24 19:06 12/05/24 19:06 12/05/24 19:06
Last Documented Vital Signs
Temp Pulse Resp BP Pulse Ox
98.3 F 88 16 130/88 97
12/05/24 19:06 12/05/24 19:06 12/05/24 19:06 12/05/24 19:06 12/05/24 20:33
*Pulse Oximetry
SaO2: 97
Oxygen Mode of Delivery: Room air
Patient hypoxic: no
*Critical Care Note
Total Time (30-74mins, 75-104mins- exclusive of procedures): Not Applicable
ED Attending Note
-
Portions of this chart may have been created with voice recognition software.� Occasional wrong word or��sound alike� substitutions may have occurred due to the inherent limitations of voice recognition software.
Discharge Plan
Departure
Patient Disposition: Home (Routine Discharge)
Date of Disposition: 12/05/24
Time of Disposition: 21:23
Patient with high blood pressure during this ER visit?: Yes
Condition: Good
Discharge Problem:
Headache
Instructions: Headache, Adult (DC), BLOOD PRESSURE
Prescriptions:
No Action
albuterol sulfate 1 PUFF HFA aerosol inhaler
1 puff inhalation R Q4HPRN PRN (Reason: SOB)
norethindrone-e.estradiol-iron 1 EACH tablet
1 ea PO DAILY
ibuprofen 600 mg tablet
600 mg PO QID PRN (Reason: fever or pain) Qty: 20 0RF
albuterol sulfate 2.5 mg /3 mL (0.083 %) solution for nebulization
2.5 mg inhalation QID PRN (Reason: shortness of breath or wheezing) Qty: 180 0RF
Referrals:
Ayush Mosley MD [Family Provider, Family Practice] - Call in 1-3 days for appt
Interventions
Interventions:
*Risk Screen - Suicide Last Done: 12/05/24 19:06
*General Assessment Last Done: 12/05/24 19:06
*Neglect/Abuse Screening Last Done: 12/05/24 19:06
*ED- Fall Risk Assessment Last Done: 12/05/24 19:06
*ED COVID-19 Vaccine History Last Done: 12/05/24 19:06
*ED Influenza Vaccine History Last Done: 12/05/24 19:06
*Nursing Disposition Last Done: 12/05/24 21:32
ED- Neurological Assessment Last Done: 12/05/24 19:44
Discharge Date and Time
Discharge Date/Time: 12/05/24 21:35
Print Language: MOSOTHO
[2024-12-05] MEDS: BENADRYL 25 MG IV (20:36)
[2024-12-05] MEDS: TORADOL 15 MG IV (20:37)
[2024-12-05] MEDS: REGLAN 10 MG IV (20:37)
[2024-12-05 20:50] LABS: Hematocrit 40.5 % (37.0-47.0); Hemoglobin 14.1 g/dL (12.0-16.0); Mean Corp Hgb Conc. 34.8 g/dL (33.0-37.0); Mean Corpuscular Volume 96.4 fL (81.0-99.0); Nucleated Red Blood Cells % 0 %; Platelet Count 227 10^3/uL (130-400); Red Cell Dist. Width 11.7 % (11.5-14.5)
[2024-12-05 21:12] LABS: ALT (SGPT) 22 U/L (0-35); AST (SGOT) 22 U/L (14-36); Albumin 4.6 g/dl (3.5-5.0); Alkaline Phosphatase 57 U/L (38-126); Blood Urea Nitrogen 11 mg/dl (7-17); Calcium 9.4 mg/dl (8.4-10.2); Carbon Dioxide 25 mmol/L (22-30); Chloride 105 mmol/L (98-107); Estimated Creatinine Clearance 104 ml/min; Glucose 86 mg/dl (70-99); Potassium 4.3 mmol/L (3.5-5.1); Sodium 138 mmol/L (135-145); Total Protein 7.3 g/dl (6.3-8.2); eGFR > 60.00
== END 2024-12-05 21:35 | disposition home or self-care (01) ==
LOC: EMR 19:05
PROVIDERS: EMERGENCY PHYSICIAN Emergency Medicine; FAMILY PHYSICIAN Family Medicine
DX: R51.9 Headache, unspecified (principal); R07.89 Other chest pain; J45.909 Unspecified asthma, uncomplicated; Z82.49 Family history of ischemic heart disease and other diseases of the circulatory system
CPT/HCPCS: 99283; 96374; 96375; 80053; 85025; 93005